=== PATIENT | male | born 1980 | race Caucasian/White ===

== ENCOUNTER 2017-10-26 16:14 | Emergency (ER) | payer OTHER ==
[~2017-10-26] VITALS: Ht 170.2 cm; Wt 122.5 kg
[2017-10-26 16:20] VITALS: BP 125/84
[2017-10-26] MEDS ORDERED: KEFLEX500 M1 PO ×2 (16:27→16:39)
[2017-10-26] MEDS ORDERED: NOHOMEMEDICATIONS (16:32)
== END 2017-10-26 16:40 | disposition home or self-care (01) ==
LOC: M.ERS 16:14
DX: S81.811A Laceration without foreign body, right lower leg, initial encounter (principal); W26.8XXA Contact with other sharp object(s), not elsewhere classified, initial encounter; Y93.89 Activity, other specified; Y92.89 Other specified places as the place of occurrence of the external cause; Y99.8 Other external cause status

== ENCOUNTER 2018-02-23 15:21 | Emergency (ER) | payer OTHER ==
[~2018-02-23] VITALS: Ht 170.2 cm; Wt 117.9 kg
[~2018-02-23 15:21] MED LIST: KEFLEX500 M1 PO; NOHOMEMEDICATIONS
[2018-02-23 15:29] VITALS: BP 143/88
[2018-02-23] MEDS ORDERED: MEDROLDOSEPACK PO (15:54)
[2018-02-23] MEDS ORDERED: PENICILLIN VK500 MG PO (15:54)
== END 2018-02-23 15:58 | disposition home or self-care (01) ==
LOC: M.ERS 15:21
DX: J02.0 Streptococcal pharyngitis (principal); Z88.8 Allergy status to other drugs, medicaments and biological substances

== ENCOUNTER 2018-08-05 12:01 | Emergency (ER) | payer OTHER ==
[~2018-08-05] VITALS: Ht 170.2 cm; Wt 127.0 kg
[~2018-08-05 12:01] MED LIST changes: +MEDROLDOSEPACK PO; +PENICILLIN VK500 MG PO
[2018-08-05 12:06] VITALS: BP 122/83
[2018-08-05] MEDS ORDERED: ELIQUIS5 MG PO (12:10)
[2018-08-05] MEDS ORDERED: LISINOPRIL5 MG PO (12:11)
== END 2018-08-05 12:12 | disposition home or self-care (01) ==
LOC: M.ERS 12:01
DX: S01.01XD Laceration without foreign body of scalp, subsequent encounter (principal); Z88.8 Allergy status to other drugs, medicaments and biological substances; W27.0XXD Contact with workbench tool, subsequent encounter